=== PATIENT | female | born 1980 | race Caucasian/White ===

== ENCOUNTER 2016-06-30 16:13 | Emergency (ER) | payer OTHER ==
[~2016-06-30 16:13] MED LIST: AMOXICILLIN875 M1 PO; AMOXICILLIN875 MG PO; AMOXIL500 M1 PO; AMOXIL500 MG PO; ATARAX50 MG PO; BACTRIM DS TABL1 TAB PO; DARVOCET-N 1001 TAB PO; NO HOME MEDICATION XX; NO MEDICATIONS; PEN-VEE K500 MG PO; PREDNISONE10 MG PO; ULTRAM50 MG PO
[2016-06-30 16:43] LABS: BASO % 0.2 % (0-2); EOSINOPHIL ABSOLUTE COUNT 0.2 tho/cmm (0.0-0.7); HCT-HEMATOCRIT 40.6 % (34.0-49.0); HGB-HEMOGLOBIN 13.6 gm/dl (12.0-15.5); IMMATURE GRANULOCYTES ABSOLUTE 0.02 tho/cmm (0-0.03); IMMATURE GRANULOCYTES PERCENT 0.2 % (0-0.3); LYMPH % 36.8 % (20-45); LYMPH ABSOLUTE COUNT 3.1 tho/cmm (0.8-4.5); MCH (MEAN CORPUSCULAR HGB) 29.8 pg (28.0-32.0); MCHC MEAN CORPUSCULAR HGB CONC 33.5 % (32.0-36.0); MCV (MEAN CELL VOLUME) 88.8 fl (82.0-96.0); MEAN PLATELET VOLUME 9.2 cmc (9.4-12.4); MONO % 6.7 % (0-12); MONOCYTE ABSOLUTE COUNT 0.6 tho/cmm (0.0-1.2); NEUTROPHIL ABSOLUTE COUNT 4.5 tho/cmm (1.6-8.0); NEUTROPHIL-AUTOMATED 4.5 tho/cmm (1.6-8.0); NEUTROPHILS % 54.1 % (40-80); PLATELET COUNT 319 tho/cmm (150-450); RED BLOOD COUNT 4.57 mil/cmm (4.00-5.20); RED CELL DISTRIBUTION WIDTH 13.7 % (12.4-16.4); WHITE BLOOD COUNT 8.4 tho/cmm (4.0-10.0)
[2016-06-30 16:54] LABS: ANION GAP 11 mmol/L (0-20); BLOOD UREA NITROGEN 11 mg/dl (6-24); CALCIUM 8.7 mg/dl (8.5-10.5); CARBON DIOXIDE-VENOUS 27 mmol/L (22-32); CHLORIDE 106 mmol/l (96-110); CREATININE 0.92 mg/dl (0.50-1.10); GLUCOSE 115 mg/dL (70-110); SODIUM 140 mmol/L (135-145); eGFR VALUE FOR BLACK >90 mL/Min
[2016-06-30 16:55] LABS: POTASSIUM 3.9 mmol/L (3.7-5.1)
[2016-06-30 16:56] LABS: PREGNANCY-SERUM NEGATIVE (NEGATIVE)
[2016-06-30] MEDS ORDERED: NORCO 5-325 TA1 EACH PO (18:06)
[2016-06-30] MEDS ORDERED: IBUPROFEN600 M1 PO (18:06)
[2016-12-09] MEDS ORDERED: MELOXICAM15 M1 PO (18:37)
[2017-01-04] MEDS ORDERED: CYCLOBENZAPRINE10 M1 PO (17:27)
[2017-01-04] MEDS ORDERED: NORCO 5-325 TA1 EACH PO (17:27)
== END 2016-06-30 18:35 ==
LOC: EDMED 16:13
PROVIDERS: Emergency Medicine
DX: S80.212A Abrasion, left knee, initial encounter (principal); M79.1 Myalgia; V49.40XA Driver injured in collision with unspecified motor vehicles in traffic accident, initial encounter
CPT/HCPCS: Q9967